=== PATIENT | male | born 1975 | race Caucasian/White ===

== ENCOUNTER 2024-05-14 19:50 | Observation (INO) ==
[2024-05-14] MEDS ORDERED: PHENAZOPYRIDINE HCL 200 MG TABLET PO SCH (22:15)
[2024-05-14] MEDS ORDERED: 0.9 % SODIUM CHLORIDE 1000 ML 1,000 ML IV SCH (22:15)
[2024-05-14] MEDS: KETOROLAC 30 MG/ML INJ VIAL IVP ONE (22:21)
[2024-05-14] MEDS: 0.9 % SODIUM CHLORIDE 1000 ML 1,000 ML IV ONE (22:21)
--- NOTE | 2024-05-14 22:21 | Emergency Department Note ---
HPI - Male Genitourinary General Chief complaint: Urogenital-Male Stated complaint: WEAKNESS,NAUSEA,NOT EATING,BLADDER AREA BURNING Time Seen by Provider: 05/14/24 21:58 Source: patient Mode of arrival: wheelchair Limitations: physical limitation Limitations comment: paraplegic History of Present Illness HPI Narrative: 48 yo paraplegic male with chronic neurogenic bladder, self cath, frequent UTIs presents with worsening urine frequency, left flank pain, nausea, generally ill now 3 days into recent prescription of nitrofurantoin for presumed UTI. Patient historically has infection caused by E.coli variant, usually resistant to macrobid and amoxicillin. He has also recently been on course of ciprofloxacin within the last month as well. He looks ill but not toxic, obviously uncomfort able. Denies any NV, fever (although feels feverish), chest pain or dyspnea. I have personally reviewed the TRIAGE and nursing intake notes and I agree with those. I also reviewed the available medical history and prior visit notes (where available) for this patient. No NVD, chest or abdominal pain. VSS, AAOx4, GCS=15, ambulatory, NAD. Tolerating PO. MD Complaint: Reports dysuria Onset (ago): day(s) (4) Duration: Reports constant and progressively worsening Location: Reports left flank Severity: moderate Quality: Reports aching and dull Relieving factors: Reports none Context: Reports new medication and other (frequent self-cath, hx neurogenic bladder) Associated symptoms: Denies blood in urine, fever or nausea/vomiting Related Data Sexually active: No Home Medications Medication Instructions Recorded Confirmed gabapentin 800 mg tablet 800 mg PO QID 09/29/23 05/15/24 pantoprazole 40 mg tablet,delayed 40 mg PO DAILY 09/29/23 05/15/24 release ondansetron HCl 8 mg tablet 8 mg PO Q8H PRN nausea and vomiting 11/07/23 11/07/23 aspirin 81 mg tablet,delayed 81 mg PO DAILY 05/15/24 05/15/24 release atorvastatin 40 mg tablet 40 mg PO DAILY 05/15/24 05/15/24 clopidogrel 75 mg tablet 75 mg PO DAILY 05/15/24 05/15/24 metoprolol succinate 25 mg 25 mg PO DAILY 05/15/24 05/15/24 tablet,extended release 24 hr Previous Rx's Medication Instructions Recorded cephalexin 500 mg capsule 500 mg PO QID uti #40 caps 11/07/23 ciprofloxacin HCl 500 mg tablet 500 mg PO Q12H uti #14 tabs 12/04/23 (Cipro) cephalexin 500 mg capsule 500 mg PO QID uti #40 caps 01/03/24 Allergies Allergy/AdvReac Type Severity Reaction Status Date / Time Latex, Natural Rubber Allergy Verified 05/14/24 22:13 Sulfa (Sulfonamide Allergy Verified 05/14/24 22:13 Antibiotics) tramadol Allergy Verified 05/14/24 22:13 Review of Systems Status of ROS 10 or more systems reviewed and unremark able except as noted in history and below PFSH PFS Medical History Paraplegia Frequent UTI PUD (peptic ulcer disease) MRSA (methicillin resistant Staphylococcus aureus) C. difficile enteritis Surgical History H/O heart artery stent H/O Spinal surgery Social History Smoking status: current every day smoker Problems where you live: no known problems Feel stressed/tense/nervous/anxious/difficulty sleeping: not at all Due to disability, difficulty making decisions: No Exam Constitutional: normal general appearance and alert Vital Signs - 24 hr 05/14/24 21:50 05/14/24 23:30 05/15/24 00:29 Temperature 98.6 F Pulse Rate 76 74 81 Respiratory Rate 16 16 Blood Pressure 111/69 105/69 109/77 Pulse Oximetry 96 97 96 Oxygen Delivery Me thod Room Air Room Air Room Air 05/15/24 01:00 Temperature Pulse Rate 76 Respiratory Rate 16 Blood Pressure 129/72 Pulse Oximetry 97 Oxygen Delivery Me thod Room Air confined to wheelchair HENMT: normocephalic, head/scalp atraumatic and oral mucous membranes normal Eyes: PERRL and EOMs intact bilaterally Neck/C-Spine: visual inspection normal, cervical full ROM noted and supple Lymph: no lymphadenopathy noted Chest: inspection of chest normal and palpation of chest normal Respiratory: breath sounds equal bilaterally and normal respiratory effort Cardiovascular: normal heart rate noted and regular rhythm noted Genitourinary: external appearance normal Back/Pelvis: Left CVA TTP Extremities: normal to inspection and no deformity Neurology: manufacturing engineer paint II-XII intact and GCS normal Psychiatry: mental status grossly normal and oriented x3 Feel stressed/tense/nervous/anxious/difficulty sleeping: not at all Due to disability, difficulty making decisions: No Skin: skin color normal and no lesions Course Vital Signs Vital signs: Vital Signs Temperature 98.6 F 05/14/24 21:50 Pulse Rate 76 05/14/24 21:50 Respiratory Rate 16 05/14/24 21:50 Blood Pressure 111/69 05/14/24 21:50 Pulse Oximetry 96 05/14/24 21:50 Oxygen Delivery Method Room Air 05/14/24 21:50 Temperature 98.6 F 05/14/24 21:50 Pulse Rate 76 05/15/24 01:30 Respiratory Rate 16 05/15/24 01:30 Blood Pressure 108/73 05/15/24 01:30 Pulse Oximetry 97 05/15/24 01:30 Oxygen Delivery Method Room Air 05/15/24 01:30 MDM - Male Genitourinary Differential Diagnosis Differential diagnosis: Likely urinary tract infection, urethritis and other (pyelonephritis, kidney stone) Medical Records Attestation: I reviewed the patient's medical records. Lab Data Attestation: I reviewed the patient's lab results. Labs: Lab Results 05/14/24 05/14/24 Range/Units 21:30 21:35 WBC 14.2 H (3.7-9.6) K/uL RBC 5.3 (4.40-5.80) M/uL Hgb 15.5 (14.0-17.4) gm/dL Hct 46.5 (41.3-50.1) % MCV 88.2 (81.9-96.5) fl MCH 29.5 (27.6-33.7) pg MCHC 33.4 (33.0-35.7) g/dl RDW 15.1 H (11.0-14.8) % Plt Count 225 (142-355) K/uL MPV 8.6 (6.0-10.4) fl Gran % 68.2 (49.1-73.1) % Lymph % (Auto) 19.5 (17.6-39.05) % [place] % (Auto) 8.5 (4.5-10.7) % Eos % (Auto) 3.1 (0.0-4.0) % Baso % (Auto) 0.7 (0.0-1.3) Lymph # (Auto) 2.8 (0.8-2.9) [place] # (Auto) 1.2 H (0.2-0.8) Eos # (Auto) 0.4 H (0.0-0.3) Baso # (Auto) 0.1 (0.0-0.1) Absolute Gran (auto) 9.7 H (2.0-6.2) Sodium 141 (136-145) mmol/L Potassium 4.0 (3.6-5.2) mmol/L Chloride 106.0 (98-107) mmol/L Carbon Dioxide 28 (21-32) mmol/L Anion Gap 7.0 (4-14) mEq/L BUN 17 (7-18) mg/dL Creatinine 0.7 (0.6-1.3) mg/dL Estimated GFR 114.4 (>59.9) Glucose 84 (70-110) mg/dL Lactic Acid 0.3 (0.27-1.43) mmol/L Calcium 8.8 (8.5-10.1) mg/dL Total Bilirubin 0.43 (0.0-1.0) mg/dL AST 20 (15-37) U/L ALT 18 L (30-65) U/L Alkaline Phosphatase 95 (50-136) U/L C-Reactive Protein 0.300 (0.050-0.300) mg/dL Total Protein 7.0 (6.4-8.2) g/dL Albumin 3.5 (3.4-5.0) g/dL Urine Color Tatiana (STRAW/YELL.) Urine Appearance Clear (CLEAR) Ur Specific [place] 1.015 (1.001-1.035) Urine Protein Negative (NEGATIVE) Urine Glucose (UA) Normal (NORMAL) Urine Ketones Negative (NEGATIVE) Urine Occult Blood Negative (NEG - TRACE) Urine Nitrite Negative (NEGATIVE) Urine Bilirubin 1+ (NEGATIVE) Urine Urobilinogen Normal (NORMAL) Ur Leukocyte Esterase Positive (NEGATIVE) Urine RBC 2 - 5 (0 - 5) Urine WBC 10 - 25 ( 0 - 5) Ur Epithelial Cells Negative (Few/HPF) Amorphous Sediment Few (Negative) Urine Bacteria Few (Negative) Urine Mucus Negative (Negative) Urine Trichomonas Negative (Negative) Urine Yeast Few (Negative) Fluid pH 6.0 (5 - 9) Imaging Data Imaging ordered: CT scan - abdomen Attestation: I have reviewed the pertinent imaging results. Radiologist's impression: Circumferential wall thickening involving the rectum which may represent proctitis. Correlate clinically. Core Measures AMI core measures followed: No Measure exclusions: not indicated Discharge Plan Discharge Patient Disposition: Admitted As Observation Condition: Stable Clinical Impression: Pyelonephritis, Neurogenic bladder Time of Disposition: 01:15
[2024-05-14] MEDS ORDERED: ONDANSETRON HCL/PF 4 MG/2 ML VIAL ONE (22:27)
[2024-05-14] MEDS: PHENAZOPYRIDINE HCL 200 MG TABLET PO ONE (22:35)
[2024-05-14] MEDS: ONDANSETRON HCL/PF 4 MG/2 ML VIAL IVP ONE (22:35)
[2024-05-14 22:53] LABS: Basophils #(Absolute) Auto 0.1 (0.0-0.1); Basophils%(Percent) Auto 0.7 (0.0-1.3); Eosinophils#(Absolute)Auto 0.4 (0.0-0.3); Eosinophils%(Percent) Auto 3.1 % (0.0-4.0); Granulocytes % - Auto 68.2 % (49.1-73.1); Granulocytes#(Absolute)- Auto 9.7 (2.0-6.2); Hematocrit 46.5 % (41.3-50.1); Mean Corpuscular Volume 88.2 fl (81.9-96.5); Monocytes #(Absolute)- Auto 1.2 (0.2-0.8); Monocytes %(Percent)- Auto 8.5 % (4.5-10.7); Platelet Count 225 K/uL (142-355); White Blood Count 14.2 K/uL (3.7-9.6)
[2024-05-14 23:20] LABS: Specific Gravity Urine 1.015 (1.001-1.035); Urine Appearance CLEAR (CLEAR); Urine Blood NEGATIVE (NEG - TRACE); Urine Color AMBER (STRAW/YELL.)
[2024-05-14 23:21] LABS: Urine Amorphous Sediment Few (Negative); Urine Urobilinogen Normal (NORMAL)
[2024-05-14 23:22] LABS: Urine Yeast Few (Negative)
[2024-05-14] MEDS ORDERED: 0.9 % SODIUM CHLORIDE 250 ML IV ONE (23:32)
[2024-05-14] MEDS ORDERED: VANCOMYCIN HCL 1,000 MG VIAL IV ONE (23:33)
[2024-05-14] MEDS: VANCOMYCIN HCL 1,000 MG in 0.9 % SODIUM CHLORIDE 250 ML IV ONE (23:38)
[2024-05-15] MEDS ORDERED: ACETAMINOPHEN 325 MG TABLET PO PRN (01:08)
[2024-05-15] MEDS: 0.9 % SODIUM CHLORIDE 1000 ML 1,000 ML IV SCH (02:44)
[2024-05-15] MEDS: LEVOFLOXACIN/D5W 750 MG/150 ML 750 MG/150 ML PIGGYBACK IV SCH (02:44)
[2024-05-15] MEDS: HYDROCODONE/ACETAMINOPHEN 5/325 MG TABLET PO PRN (03:22)
[2024-05-15 05:10] LABS: Basophils #(Absolute) Auto 0.1 (0.0-0.1); Basophils%(Percent) Auto 0.8 (0.0-1.3); Eosinophils#(Absolute)Auto 0.4 (0.0-0.3); Eosinophils%(Percent) Auto 3.8 % (0.0-4.0); Granulocytes % - Auto 64.2 % (49.1-73.1); Granulocytes#(Absolute)- Auto 7.6 (2.0-6.2); Mean Corpuscular Volume 87.9 fl (81.9-96.5); Monocytes %(Percent)- Auto 8.5 % (4.5-10.7); Platelet Count 191 K/uL (142-355); White Blood Count 11.9 K/uL (3.7-9.6)
[2024-05-15 05:43] LABS: Potassium 3.4 mmol/L (3.6-5.2)
[2024-05-15] MEDS ORDERED: MAGNESIUM HYDROXIDE 400 MG/5 ML ORAL.SUSP PO PRN (08:05)
[2024-05-15] MEDS ORDERED: MAGNESIUM, ALUMINUM HYDROXIDE 30 ML ORAL.SUSP PO PRN (08:05)
[2024-05-15] MEDS ORDERED: ACETAMINOPHEN 500 MG TABLET PO PRN (08:05)
[2024-05-15] MEDS ORDERED: DOCUSATE SODIUM 100 MG CAPSULE PO PRN (08:05)
[2024-05-15] MEDS: ASPIRIN 81 MG TABLET.DR PO SCH (09:09)
[2024-05-15] MEDS: CLOPIDOGREL BISULFATE 75 MG TABLET PO SCH (09:09)
[2024-05-15] MEDS: FAMOTIDINE 20 MG TABLET PO SCH (09:09)
[2024-05-15] MEDS: PANTOPRAZOLE SODIUM 40 MG TABLET.DR PO SCH ×2 (09:09→09:16)
[2024-05-15] MEDS: GABAPENTIN 400 MG CAPSULE PO SCH (09:09)
[2024-05-15] MEDS: METOPROLOL SUCCINATE 25 MG TAB.ER.24H PO SCH (09:16)
[2024-05-15] MEDS: GABAPENTIN 800 MG PO SCH (09:17)
[2024-05-15] MEDS: KETOROLAC 30 MG/ML INJ VIAL IVP PRN (12:02)
[2024-05-15] MEDS: ONDANSETRON HCL/PF 4 MG/2 ML VIAL INJ PRN (22:34)
[2024-05-16 05:26] LABS: Basophils #(Absolute) Auto 0.1 (0.0-0.1); Basophils%(Percent) Auto 1.2 (0.0-1.3); Eosinophils#(Absolute)Auto 0.3 (0.0-0.3); Granulocytes % - Auto 48.2 % (49.1-73.1); Granulocytes#(Absolute)- Auto 2.8 (2.0-6.2); Hematocrit 40.2 % (41.3-50.1); Mean Corpuscular Volume 89.4 fl (81.9-96.5); Monocytes #(Absolute)- Auto 0.6 (0.2-0.8); Monocytes %(Percent)- Auto 9.9 % (4.5-10.7); Platelet Count 166 K/uL (142-355); White Blood Count 5.8 K/uL (3.7-9.6)
[2024-05-16] MEDS: CEFTRIAXONE SODIUM 1 GM in 0.9 % SODIUM CHLORIDE MB+ 50 ML IV SCH (13:00)
[2024-05-16] MEDS: KETOROLAC 30 MG/ML INJ VIAL IVP PRN (13:01)
--- NOTE | 2024-05-16 13:26 | Progress Note ---
Progress Note: Subjective Subjective Interval history: Mr. Weiss is doing well this morning still complains of flank pain but CT is negative for pyelonephritis. Vitals and labs have been stable. C&S is still pending for UA. Will change to rocephin due to prior culture reports. Exam Constitutional: normal general appearance, no apparent distress, average body habitus, no limitations and alert Vital Signs - 24 hr 05/15/24 15:59 05/15/24 19:21 05/15/24 23:58 Temperature 97.4 F L 97.9 F 98.7 F Pulse Rate [Brachi al] 64 67 67 Respiratory Rate 19 18 18 Blood Pressure [Le ft Arm] 118/83 120/79 118/65 Pulse Oximetry 97 97 97 Oxygen Delivery Me thod Room Air Room Air Room Air 05/16/24 04:00 05/16/24 07:53 Temperature 98.3 F 98.1 F Pulse Rate [Brachi al] 91 H 74 Respiratory Rate 16 16 Blood Pressure [Le ft Arm] 120/74 120/71 Pulse Oximetry 97 97 Oxygen Delivery Me thod Room Air Room Air HENMT: normocephalic, head/scalp atraumatic, hearing grossly normal bilaterally and oral mucous membranes normal Eyes: PERRL, EOMs intact bilaterally, conjunctivae normal, no scleral icterus, no papilledema and periorbital findings normal Neck/C-Spine: visual inspection normal, trachea midline, cervical spine nontender, cervical full ROM noted and supple Lymph: no lymphadenopathy noted and no lymphedema noted Chest: inspection of chest normal, palpation of chest normal, inspection of breasts normal and palpation of breasts normal Respiratory: breath sounds equal bilaterally, normal respiratory effort and clear to auscultation bilaterally Cardiovascular: normal heart rate noted, regular rhythm noted, no gallop, no rub, no murmur and no JVD Gastrointestinal: abdomen normal to inspection, abdomen soft to palpation, nontender to palpation, nontender to percussion, normoactive bowel sounds and no hepatosplenomegaly Genitourinary: no CVA tenderness, bladder normal to palpation and external appearance normal Back/Pelvis: spine normal to inspection, no thoracic spine tenderness, no lumbar spine tenderness and thoracic spine ROM normal Left CVA TTP Extremities: normal to inspection, normal to palpation, no tenderness, full ROM and no deformity Neurology: facilities painter II-XII intact, no movement abnormality noted, no focal motor deficit noted, no sensory deficits noted, deep tendon reflexes 2+ bilaterally, gait normal, speech normal, coordination normal and GCS normal Paraplegia Psychiatry: mental status grossly normal, oriented x3, thought process normal, cooperative, affect normal, psychomotor activity normal and memory normal Feel stressed/tense/nervous/anxious/difficulty sleeping: not at all Due to disability, difficulty making decisions: No Skin: skin color abnormal, no rash, no lesions, no ecchymosis noted, no wounds, no lacerations, skin turgor abnormal, no petechiae, no mottling, nails abnormality noted and no alopecia Progress Note: Objective Labs Labs: CBC 05/16/24 Range/Units 05:20 WBC 5.8 (3.7-9.6) K/uL RBC 4.5 (4.40-5.80) M/uL Hgb 13.2 L (14.0-17.4) gm/dL Hct 40.2 L (41.3-50.1) % Plt Count 166 (142-355) K/uL Gran % 48.2 L (49.1-73.1) % Lymph % (Auto) 34.7 (17.6-39.05) % [place] % (Auto) 9.9 (4.5-10.7) % Eos % (Auto) 6.0 H (0.0-4.0) % Baso % (Auto) 1.2 (0.0-1.3) Lymph # (Auto) 2.0 (0.8-2.9) [place] # (Auto) 0.6 (0.2-0.8) Eos # (Auto) 0.3 (0.0-0.3) Baso # (Auto) 0.1 (0.0-0.1) Absolute Gran (auto) 2.8 (2.0-6.2) CMP 05/16/24 05:20 Sodium 143 Potassium 4.0 Chloride 112.0 H Carbon Dioxide 27 BUN 9 Creatinine 0.6 Glucose 84 Calcium 8.0 L Urine 05/14/24 21:30 Urine Color Tatiana Urine Appearance Clear Ur Specific [place] 1.015 Urine Protein Negative Urine Glucose (UA) Normal Imaging CT scan - abdomen: Radiologist's impression: [address] [address] [address] Scan Report Signed Patient: Jon Weiss MR#: [id number] : 1975 Acct:[id number] Age/Sex: 48 / M ADM Date: 05/15/24 Loc: 1110-[address]: Dawn Galeas NP Ordering Physician: Luigi Page Date of Service: 05/14/24 Procedure(s): CT abdomen pelvis w con Accession Number(s): [id number] cc: Luigi Page; Dawn Galeas NP; [facility]~ EXAM: CT ABDOMEN AND PELVIS WITH CONTRAST HISTORY: Abdomen pain ; COMPARISON: 11/04/2021 TECHNIQUE: Axial images were acquired of the abdomen and pelvis with IV contrast. Sagittal and coronal reformatted images were provided. All images were reviewed in a variety of windows and levels. RADIATION REDUCTION TECHNIQUE: Automated exposure control, adjustment of the mA and/or kV according to patient size, or iterative reconstruction techniques were used. FINDINGS: LOWER THORAX: The visualized lower lung zones are clear. The heart size is within normal limits. There is no evidence of a pericardial effusion. LIVER: No intrahepatic focal lesions are seen. No evidence of intrahepatic or extrahepatic duct dilation. GALLBLADDER: The gallbladder is unremarkable. SPLEEN: The spleen enhances homogenously and is unremarkable. PANCREAS: The pancreas enhances homogenously and is unremarkable. ADRENAL GLANDS: The adrenal glands enhance homogenously and are unremarkable. : The kidneys enhance homogenously. Their collecting system is of normal caliber. URINARY BLADDER: The urinary bladder is unremarkable. There are no soft tissue masses seen in the urinary bladder. VESSELS: The abdominal aorta is normal in size without evidence of aneurysm or dissection. The celiac artery, superior mesenteric artery, [place] renal arteries, and inferior mesenteric artery are patent. GI: The stomach and small bowel is unremarkable. There are no inflammatory changes seen in the right lower quadrant to suggest secondary signs of acute appendicitis. Normal appendix right lower quadrant. There is circumferential wall thickening involving the rectum which may represent proctitis. Correlate clinically. LYMPHNODES AND MESENTERY: There is no evidence of retroperitoneal lymphad enopathy. Small fat containing umbilical hernia. BONES: The visualized bones demonstrate degenerative changes. There are no concerning lytic or blastic lesions identified. Spinal stabilization rods and pedicular screws lower thoracic upper lumbar spine. Spinal stabilization rods and pedicular screws are also present at the L5-S1 level. IMPRESSION: Circumferential wall thickening involving the rectum which may represent proctitis. Correlate clinically. THIS IS AN ELECTRONICALLY VERIFIED FINAL REPORT 05/15/2024 1:24 AM - Electronically signed by Harry Shelley MD Dictated By: Harry Shelley M.D. Signed By: 05/15/24 0124 DD/ 2333 TD/TT: 05/15/24 0037 Progress Note: A&P Assessment and Plan (1) UTI (urinary tract infection): Qualifiers: Urinary tract infection type: site unspecified Hematuria presence: without hematuria Qualified Code(s): N39.0 - Urinary tract infection, site not specified (2) Abdominal pain: Qualifiers: Abdominal location: left upper quadrant Qualified Code(s): R10.12 - Left upper quadrant pain (3) Hypokalemia: (4) Nausea: (5) Anemia: Qualifiers: Anemia type: other cause Other causes of anemia: other cause, not classified Qualified Code(s): D64.89 - Other specified anemias Plan UTI D/C Levaquin Rocephin 1gm IV daily UA cultures pending potassium corrected per protocol will continue to monitor Fall Risk Details Castillo Fall Scale Risk Level: High Fall Risk Current Medications: Current Medications Acetaminophen (Acetaminophen 325 Mg Tablet) 650 mg PO Q4H PRN PRN Reason: Fever OF 100.5 OR GREATER Acetaminophen (Acetaminophen 500 Mg Tablet) 500 mg PO Q6H PRN PRN Reason: Fever OF 100.5 OR GREATER Hydrocodone Bitart/Acetaminophen (Hydrocodone/Acetaminophen 5/325 Mg Tablet) 1 each PO Q4H PRN PRN Reason: pain Last Admin: 05/15/24 18:22 Dose: 1 each Al Hydroxide/Mg Hydroxide (Magnesium Hydroxide 400 Mg/5 Ml Oral.Susp) 400 mg PO DAILY PRN PRN Reason: indigestion Aspirin (Aspirin 81 Mg Tablet.) 81 mg PO DAILY [facility] Last Admin: 05/16/24 08:46 Dose: 81 mg Clopidogrel Bisulfate (Clopidogrel Bisulfate 75 Mg Tablet) 75 mg PO DAILY [facility] Last Admin: 05/16/24 08:45 Dose: 75 mg Docusate Sodium (Docusate Sodium 100 Mg Capsule) 100 mg PO DAILY PRN PRN Reason: Constipation Famotidine (Famotidine 20 Mg Tablet) 20 mg PO BID [facility] Last Admin: 05/16/24 08:46 Dose: 20 mg Gabapentin (Gabapentin 400 Mg Capsule) 800 mg PO QID [facility] Last Admin: 05/16/24 13:00 Dose: 800 mg Sodium Chloride (Sodium Chloride) 1,000 mls @ 125 mls/hr IV CONT [facility] Last Admin: 05/16/24 13:00 Dose: 125 mls/hr Ceftriaxone Sodium 1 gm/ (Sodium Chloride) 50 mls @ 100 mls/hr IV Q24H [facility] Last Admin: 05/16/24 13:00 Dose: 100 mls/hr Ketorolac Tromethamine (Ketorolac 30 Mg/Ml Inj Vial) 30 mg IVP Q6H PRN PRN Reason: MODERATE PAIN 1-10 IF NO PO Stop: 05/20/24 11:59 Last Admin: 05/16/24 13:01 Dose: 30 mg Magnesium Hydroxide (Magnesium, Aluminum Hydroxide 30 Ml Oral.Susp) 30 ml PO DAILY PRN PRN Reason: Constipation Metoprolol Succinate (Metoprolol Succinate 25 Mg Tab.Er.24h) 25 mg PO DAILY [facility] Last Admin: 05/16/24 08:46 Dose: 25 mg Ondansetron HCl (Ondansetron Hcl 4 Mg Tablet) 4 mg PO Q4H PRN PRN Reason: Nausea Last Admin: 05/15/24 17:08 Dose: 4 mg Ondansetron HCl (Ondansetron Hcl/Pf 4 Mg/2 Ml Vial) 4 mg INJ Q6H PRN PRN Reason: Nausea And Vomiting Last Admin: 05/16/24 13:00 Dose: 4 mg Pantoprazole Sodium (Pantoprazole Sodium 40 Mg Tablet.) 40 mg PO DAILY [facility] Last Admin: 05/16/24 08:46 Dose: 40 mg Zolpidem Tartrate (Zolpidem Tartrate 10 Mg Tablet) 10 mg PO BEDTIME PRN PRN Reason: Sleep Time Spent With Patient Time: Total time spent is greater than 50% in coordination of care (as documented) at patient's floor/unit and/or counseling patient: Time with patient: 25 - 35 minutes
--- NOTE | 2024-05-16 14:53 | History & Physical Report ---
H&P: HPI History of Present Illness Chief complaint: PYELONEPHRITIS,NEURGENIC BLADDER Review of Systems Status of ROS 10 or more systems reviewed and unremark able except as noted in history and below PFSH PFSH Medical History Paraplegia Frequent UTI PUD (peptic ulcer disease) MRSA (methicillin resistant Staphylococcus aureus) C. difficile enteritis Surgical History H/O heart artery stent H/O Spinal surgery Social History Smoking status: current every day smoker Problems where you live: no known problems Highest level of school completed/degree received: high school Feel stressed/tense/nervous/anxious/difficulty sleeping: not at all Due to disability, difficulty making decisions: No Do you think of yourself as: straight/heterosexual Gender Identity: male Meds Home Medications and Allergies Home Medications Medication Instructions Recorded Confirmed Type gabapentin 800 mg tablet 800 mg PO QID 09/29/23 05/15/24 History pantoprazole 40 mg tablet,delayed 40 mg PO DAILY 09/29/23 05/15/24 History release cephalexin 500 mg capsule 500 mg PO QID uti #40 caps 11/07/23 Rx ondansetron HCl 8 mg tablet 8 mg PO Q8H PRN nausea and vomiting 11/07/23 11/07/23 History ciprofloxacin HCl 500 mg tablet 500 mg PO Q12H uti #14 tabs 12/04/23 Rx (Cipro) cephalexin 500 mg capsule 500 mg PO QID uti #40 caps 01/03/24 Rx aspirin 81 mg tablet,delayed 81 mg PO DAILY 05/15/24 05/15/24 History release atorvastatin 40 mg tablet 40 mg PO DAILY 05/15/24 05/15/24 History clopidogrel 75 mg tablet 75 mg PO DAILY 05/15/24 05/15/24 History metoprolol succinate 25 mg 25 mg PO DAILY 05/15/24 05/15/24 History tablet,extended release 24 hr Allergies Allergy/AdvReac Type Severity Reaction Status Date / Time Latex, Natural Rubber Allergy Verified 05/14/24 22:13 Sulfa (Sulfonamide Allergy Verified 05/14/24 22:13 Antibiotics) tramadol Allergy Verified 05/14/24 22:13 Exam Constitutional: Vital Signs - 24 hr 05/15/24 15:59 05/15/24 19:21 05/15/24 23:58 Temperature 97.4 F L 97.9 F 98.7 F Pulse Rate [Brachi al] 64 67 67 Respiratory Rate 19 18 18 Blood Pressure [Le ft Arm] 118/83 120/79 118/65 Pulse Oximetry 97 97 97 Oxygen Delivery Me thod Room Air Room Air Room Air 05/16/24 04:00 05/16/24 07:53 05/16/24 12:00 Temperature 98.3 F 98.1 F 98.4 F Pulse Rate [Brachi al] 91 H 74 70 Respiratory Rate 16 16 16 Blood Pressure [Le ft Arm] 120/74 120/71 113/76 Pulse Oximetry 97 97 97 Oxygen Delivery Me thod Room Air Room Air Room Air Assessment and Plan Assessment and Plan (1) UTI (urinary tract infection): Code(s): N39.0 - Urinary tract infection, site not specified Plan UTI D/C Levaquin Rocephin 1gm IV daily UA cultures pending Results Labs Labs: CBC 05/16/24 Range/Units 05:20 WBC 5.8 (3.7-9.6) K/uL RBC 4.5 (4.40-5.80) M/uL Hgb 13.2 L (14.0-17.4) gm/dL Hct 40.2 L (41.3-50.1) % Plt Count 166 (142-355) K/uL Gran % 48.2 L (49.1-73.1) % Lymph % (Auto) 34.7 (17.6-39.05) % [place] % (Auto) 9.9 (4.5-10.7) % Eos % (Auto) 6.0 H (0.0-4.0) % Baso % (Auto) 1.2 (0.0-1.3) Lymph # (Auto) 2.0 (0.8-2.9) [place] # (Auto) 0.6 (0.2-0.8) Eos # (Auto) 0.3 (0.0-0.3) Baso # (Auto) 0.1 (0.0-0.1) Absolute Gran (auto) 2.8 (2.0-6.2) CMP 05/16/24 05:20 Sodium 143 Potassium 4.0 Chloride 112.0 H Carbon Dioxide 27 BUN 9 Creatinine 0.6 Glucose 84 Calcium 8.0 L Urine 05/14/24 21:30 Urine Color Tatiana Urine Appearance Clear Ur Specific [place] 1.015 Urine Protein Negative Urine Glucose (UA) Normal
[2024-05-16] MEDS: PROMETHAZINE HCL 25 MG in 0.9 % SODIUM CHLORIDE 50 ML IV PRN (17:00)
[2024-05-16] MEDS: NICOTINE 21 MG/HR .TD24 TD SCH (21:51)
[2024-05-16] MEDS: ZOLPIDEM TARTRATE 10 MG TABLET PO PRN (22:04)
[2024-05-17 05:42] LABS: Basophils #(Absolute) Auto 0.1 (0.0-0.1); Basophils%(Percent) Auto 1.1 (0.0-1.3); Eosinophils#(Absolute)Auto 0.4 (0.0-0.3); Eosinophils%(Percent) Auto 6.4 % (0.0-4.0); Granulocytes % - Auto 44.2 % (49.1-73.1); Granulocytes#(Absolute)- Auto 2.6 (2.0-6.2); Hematocrit 41.2 % (41.3-50.1); Monocytes #(Absolute)- Auto 0.5 (0.2-0.8); Monocytes %(Percent)- Auto 9.1 % (4.5-10.7); Platelet Count 178 K/uL (142-355); White Blood Count 5.8 K/uL (3.7-9.6)
[2024-05-17 05:53] LABS: Potassium 3.9 mmol/L (3.6-5.2)
[2024-05-17 08:05] VITALS: BP 122/85; PULSE 71; RESP 19; TEMP 97.8
--- NOTE | 2024-05-17 10:32 | Discharge Summary ---
DS: Providers Provider Date of admission: 05/15/24 01:21 Primary care physician: Jadon Bernabe MD DS: Diagnosis Discharge Diagnosis (1) UTI (urinary tract infection): DS: Summary Hospital Course Hospital Course: Mr. Weiss was admitted on 05/15/24 from the ED for acute on chronic UTI. Patient is paraplegic and self caths at home UTI has become more frequent. WBC elevated at 14 on admit. Urine was positive for leukestrase. Patient was started on levofloacin and changed to Rocephin due to prior culture reports. Labs trended back to normal. Culture report resulted on day of discharge showing acinetinobacter baumanniand patient was dishcharged on cipro. Patient was discharged on 05/17/24 to follow up with PCP and continue OP course of ABX. Status at Discharge Overall status at discharge: patient is back to baseline Time Spent with Patient Time attestation: Total time spent providing and/or coordinating discharge services: Exam Constitutional: normal general appearance and alert Vital Signs - 24 hr 05/16/24 12:00 05/16/24 16:00 05/16/24 20:00 Temperature 98.4 F 97.5 F L 98.6 F Pulse Rate [Brachi al] 70 64 67 Respiratory Rate 16 18 17 Blood Pressure [Le ft Arm] 113/76 140/87 100/65 Pulse Oximetry 97 98 98 Oxygen Delivery Me thod Room Air Room Air Room Air 05/17/24 00:00 05/17/24 03:29 05/17/24 08:00 Temperature 98.4 F 97.7 F 97.8 F Pulse Rate [Brachi al] 70 80 71 Respiratory Rate 20 18 19 Blood Pressure [Le ft Arm] 94/53 100/64 122/85 Pulse Oximetry 100 94 L 96 Oxygen Delivery Me thod Room Air Room Air Room Air HENMT: normocephalic, head/scalp atraumatic and oral mucous membranes normal Eyes: PERRL and EOMs intact bilaterally Neck/C-Spine: visual inspection normal, cervical full ROM noted and supple Lymph: no lymphadenopathy noted Chest: inspection of chest normal and palpation of chest normal Respiratory: breath sounds equal bilaterally and normal respiratory effort Cardiovascular: normal heart rate noted and regular rhythm noted Gastrointestinal: abdomen normal to inspection Genitourinary: external appearance normal Back/Pelvis: Left CVA TTP Extremities: normal to inspection and no deformity Neurology: utility agent II-XII intact and GCS normal Paraplegia Psychiatry: mental status grossly normal and oriented x3 Feel stressed/tense/nervous/anxious/difficulty sleeping: not at all Due to disability, difficulty making decisions: No Skin: skin color normal and no lesions DS: Data Data Completed and Pending Labs on day of discharge: Labs from last 24 hours 05/17/24 05:30 WBC 5.8 RBC 4.7 Hgb 13.6 L Hct 41.2 L MCV 88.0 MCH 29.1 MCHC 33.0 RDW 15.0 H Plt Count 178 MPV 8.4 Gran % 44.2 L Lymph % (Auto) 39.2 H [place] % (Auto) 9.1 Eos % (Auto) 6.4 H Baso % (Auto) 1.1 Lymph # (Auto) 2.3 [place] # (Auto) 0.5 Eos # (Auto) 0.4 H Baso # (Auto) 0.1 Absolute Gran (auto) 2.6 Sodium 144 Potassium 3.9 Chloride 114.0 H Carbon Dioxide 27 Anion Gap 3.0 L BUN 9 Creatinine 0.8 Estimated GFR 109.9 Glucose 110 Calcium 7.8 L Preliminary micro results at discharge 05/14/24 21:35 Blood Culture - Preliminary Blood - Venous Draw (Peripheral) Discharge Plan Discharge Disposition: Home, Self-Care Condition: Stable Discharge Medications: New acetaminophen-codeine 300-30 mg tablet 1 tab PO Q8H PRN (Reason: pain) Qty: 9 0RF ciprofloxacin HCl 500 mg tablet 500 mg PO Q12H Qty: 20 0RF Continued ondansetron HCl 8 mg tablet 8 mg PO Q8H PRN (Reason: nausea and vomiting) Patient Comments: TAKE 1 TABLET BY MOUTH EVERY 8 HOURS NEEDED FOR 30 DAYS gabapentin 800 mg tablet 800 mg PO QID Patient Comments: TAKE 1 TABLET BY MOUTH FOUR TIMES A DAY pantoprazole 40 mg tablet,delayed release (DR/EC) 40 mg PO DAILY Patient Comments: TAKE 1 TABLET BY MOUTH EVERY DAY FOR 30 DAYS aspirin 81 mg tablet,delayed release (DR/EC) 81 mg PO DAILY Patient Comments: TAKE 1 TABLET BY MOUTH EVERY DAY FOR 90 DAYS atorvastatin 40 mg tablet 40 mg PO DAILY Patient Comments: TAKE 1 TABLET BY MOUTH EVERY DAY FOR 90 DAYS clopidogrel 75 mg tablet 75 mg PO DAILY Patient Comments: TAKE 1 TABLET BY MOUTH EVERY DAY FOR 90 DAYS metoprolol succinate 25 mg tablet extended release 24 hr 25 mg PO DAILY Patient Comments: TAKE 1/2 TABLET BY MOUTH EVERY DAY FOR 90 DAYS Rx Instructions: Take 1/2 tablet daily Discontinued cephalexin 500 mg capsule 500 mg PO QID Qty: 40 0RF cephalexin 500 mg capsule 500 mg PO QID Qty: 40 0RF ciprofloxacin HCl [Cipro] 500 mg tablet 500 mg PO Q12H Qty: 14 0RF Discharge Orders: Discharge Order (Routine); Ordered 05/17/24 Ordered By: Ok Simmons Activity: return to work once cleared by your PCP/specialist Activity Detail: as tolerated Interventions: Discharge Assessment Last Done: 05/17/24 10:29 MED/SURG & ICU Observation Charge Sheet Last Done: 05/17/24 10:34 Patient Instructions: Urinary Tract Infection in Men (DC), How to Catheterize Yourself (Man) (GEN) Activity Restrictions/Additional Instructions: INCREASE WATER INTAKE START ANTIBIOTICS AND COMPLETE DIRECTED FOLLOW-UP WITH PRIMARY CARE Forms: Portal/Health Info Access Inst Follow-Ups: Jadon Bernabe MD [Primary Care Provider] - Discharge Date/Time: 05/17/24 11:14
[2024-05-17] MEDS ORDERED: NICOTINE 21 MG/HR .TD24 TD SCH (21:00)
== END 2024-05-17 11:14 | disposition home or self-care (01) ==
LOC: ED 19:50 → MS 05-15 00:16 → INTOOBSV 05-15 01:21 → MS 05-15 02:10
PROVIDERS: ADMIT Physician Assistant Medical; ATTEND Nurse Practitioner Family
DX: Z87.11 Personal history of peptic ulcer disease; Z88.5 Allergy status to narcotic agent; Z79.02 Long term (current) use of antithrombotics/antiplatelets; F17.200 Nicotine dependence, unspecified, uncomplicated; Z79.82 Long term (current) use of aspirin; N12 Tubulo-interstitial nephritis, not specified as acute or chronic; Z91.040 Latex allergy status; G82.20 Paraplegia, unspecified; Z87.440 Personal history of urinary (tract) infections; N31.9 Neuromuscular dysfunction of bladder, unspecified; Z95.5 Presence of coronary angioplasty implant and graft; Z79.899 Other long term (current) drug therapy; E87.6 Hypokalemia; D64.89 Other specified anemias; Z88.2 Allergy status to sulfonamides